=== PATIENT | male | born 1945 | race Caucasian/White ===

== ENCOUNTER 2016-05-14 09:06 | Day surgery (SDC) ==
[2016-05-14] MEDS ORDERED: VERSED ONE (12:10)
[2016-05-14] MEDS ORDERED: DIPRIVAN 20 ML VIAL IVP ONE (12:10)
[2016-05-14 13:08] VITALS: BP 123/71; TEMP 97.6
--- NOTE | 2016-05-15 13:22 | OP ---
INDICATIONS FOR PROCEDURE: 70-year-old gentleman presents for colonoscopy exam. He has a remote history of adenocarcinoma of the colon. MEDICATIONS: SEE ANESTHESIA NOTES. PROCEDURE: COLONOSCOPY. REPORT: The risks, benefits, alternatives and limitations were discussed in detail with the patient. Informed consent was obtained. After adequate sedation was achieved, a digital rectal exam revealed good tone, no masses. The colonoscope was introduced into the rectum and advanced under direct visual guidance to the ileocolonic anastomosis. This appeared unremarkable. The ileum appeared unremarkable. I then slowly withdrew the scope in a circumferential manner examining the mucosa quite carefully. The anastomosis was a side to side. The colonic mucosa was unremarkable its entire length other than a few small mouth diverticula scattered throughout the sigmoid colon. On retroflex view of the anal canal there is a non engorged internal hemorrhoidal vein. The prep was good. The withdrawal time in this shortened colon was 6 minutes and 21 seconds. The patient tolerated the procedure well with stable vital signs and pulse oximetry throughout. IMPRESSION: 1. DIVERTICULOSIS 2. NONENGORGED INTERNAL HEMORRHOID RECOMMENDATIONS: 1. High fiber diet. 2. Office visit as needed. 3. Colon surveillance examination again in 5 years, sooner if any signs or symptoms to indicate otherwise. CC: DR. BARI BROWN
== END 2016-05-14 13:32 | disposition home or self-care (01) ==
LOC: SURG 09:06
PROVIDERS: ATTEND Internal Medicine Gastroenterology
DX: Z08 Encounter for follow-up examination after completed treatment for malignant neoplasm (principal); Z85.038 Personal history of other malignant neoplasm of large intestine; K57.30 Diverticulosis of large intestine without perforation or abscess without bleeding; K64.8 Other hemorrhoids
CPT/HCPCS: 00810; G0105

== ENCOUNTER 2016-10-16 08:15 | Outpatient (RCR) ==
--- NOTE | 2016-10-10 16:08 | RS.OTEVAL ---
Subjective Date of Note: 10/10/16 Visit #: 1 Date of Evaluation: 10/10/16 Payer Source: MEDICARE Date of Onset/Injury/Change in Status: 09/12/16 Surgery Performed?: No Treatment Diagnosis: Contusion of Left shoulder Treatment Side (optional): Left *Precautions: Colon Cancer 1992 Prior Level of Function.....Patient was independent with: ADL's, Self Care, Work /Vocation, Caregiving, Ambulation/Mobility, Community Integration/Access History of Condition/Mechanism of Injury: Pt reported about a month ago he was trimming the bottome of a tree to make it level and when he cut the limb that was about 6 inches in diameter, it hit the ground and came back at him and hit his left deltoid. Pt reports he has had X-rays, MRI's and there is no fracture or tear of ligaments. Level of Function: Pt had difficulty with ADLS at the time of the initial injury. He now has pain in LUE with certain positions. He is driving. He can put his shirt on himself now. He has difficulty with buttons, cannot carry a suitcase with affected limb, cannot vacuum, sweep or rake with affected arm, difficulty preparing food, and difficulty opening a jar. Functional Limitations: Reaching, Pushing, Pulling, Lifting, Carrying Current Complaints/Gains: Pain and tenderness in deltoid muscle, in supraspinatus, and trapezius of LUE. Medical History Medical History Comments:: Colon CA 1992, Carpal tunnel release on BUE, Rotator cuff surgery. Diagnostic Testing/Imaging:: MRI, X-Ray Hx Home Medications: Le aspirin, Lorazepam, Citalopram HBR, Fenofibrate, Simvastatin Patient's Goals: To be pain free and be able to mow the yard and complete his ADLS. Pain Assessment - Pain Description Pain Description: Tightness, Radiating, Throbbing, Aching Pain Location: Left deltoid muscle, trapezius muscle and suprapinatus muscle. Pain Description: some numbness or tingling runs down LUE to his hand (small, ring,long digit) Current Pain Intensity: 3 Worst Pain Intensity: 7 Functional Outcome Measures UE Functional Index: 25 - G Codes & Severity Modifier G Codes: Current is CJ at 25%. Goal is CH Source of G Code score: Carrying moving and handling. Observation - Observation Inspection: Full AROM with edema in the left deltoid, supraspinatus. Handedness: Right Shoulder ROM: Bilaterally WFL's Shoulder Muscle Strength: Right WFL's - Left Shoulder Strength Left Shoulder Flexion: 4- Good- Left Shoulder Extension: 4- Good- Left Shoulder Abduction: 4- Good- Left Shoulder Adduction: 4- Good- Left Shoulder External Rotation: 4- Good- Left Shoulder Internal Rotation: 4- Good- - Right Shoulder Strength Right Shoulder Flexion: 5 Normal Right Shoulder Extension: 5 Normal Right Shoulder Abduction: 5 Normal Right Shoulder Adduction: 5 Normal Right Shoulder External Rotation: 5 Normal Right Shoulder Internal Rotation: 5 Normal - Special Tests Shoulder Empty Can (Supraspinatus) Test: Negative Left Shoulder Drop Arm Test: Negative Left Elbow ROM: Bilaterally WFL's Elbow Muscle Strength: Bilaterally WFL's - Left Elbow Strength Left Elbow Extension: 4+ Good + Left Elbow Flexion: 4+ Good + Left Forearm Pronation: 4+ Good + Left Forearm Supination: 4+ Good + - Right Elbow Strength Right Elbow Extension: 5 Normal Right Elbow Flexion: 5 Normal Right Forearm Pronation: 5 Normal Right Forearm Supination: 5 Normal Wrist ROM: Bilaterally WFL's Wrist Muscle Strength: Bilaterally WFL's - Consumer Services Consultant Strength Left Consumer Services Consultant Strength: 50 Right Consumer Services Consultant Strength: 52 - Special Tests Tinel Test: Negative Left Finklestein Test: Negative Left Phalen's Test: Negative Left Consumer Services Consultant Strength Left Hand Consumer Services Consultant Strength: 50 Right Hand Consumer Services Consultant Strength: 52 Dynamometer Testing Position: 2nd Position Palpation Palpation Findings: Tenderness, Trigger Point Sensation Right Lower Extremity: Intact/Normal Left Upper Extremity: Intact/Normal Left Lower Extremity: Intact/Normal Sensation Description: Within Normal Limits Modalities - Hot Pack/Cryotherapy Treatment: Cryotherapy Interventions - Exercise/Activities Exercise/Activities/Manual Therapy: Manual therapy to supraspinatus, trapezius, and deltoid muscle - Charges Total Direct Minutes: 70 Total Treatment Time: 40 Procedures billed for this date of service:: Yari oreilly, Manual x 2 , CP Assessment Assessment: Tenderness as a deep bruise to the Left deltoid. Pt has pain and numbness or tingling in LUE to the hand. Patient Education: Education of diagnosis, Home Exercise Program, Education of Plan of Care Rehab Potential: Good Short Term Goals Goal #1: Pt pain in LUE shoulder decreased to 1-2/10. Goal to be met by: 10/24/16 Goal #2: Pt to increase manufacturing support engineer strength to 52#. Goal to be met by: 10/24/16 Goal #3: Pt to increase strength of LUE to 4+/5 Goal to be met by: 10/24/16 Goal #4: Pt to increase coordination of LUE to be intact. Goal to be met by: 10/24/16 Pantographer Goals Goal #1: Pt pain in LUE shoulder decreased to 0/10. Goal to be met by: 11/14/16 Goal #2: Pt to increase manufacturing support engineer strength to 55#. Goal to be met by: 11/14/16 Goal #3: Pt to increase strength of LUE to 4+/5. Goal to be met by: 11/14/16 Goal #4: Pt to increase coordination of LUE to be intact. Goal to be met by: 11/14/16 Plan - Treatment to be provided Procedures: Therapeutic Exercises, Therapeutic Activity, Manual Therapy, Patient Education Modalities: Electrical Stimulation, Ultrasound/Phonophoresis, Class IV Laser - Treatment Plan Frequency: 3 X week Duration: 4 weeks ORDER # VISITS AND/OR THROUGH DATE: 2016 - Treatment Code (1) Contusion of left shoulder, initial encounter Comments: S40.012A Left shoulder contusion (2) Muscle weakness of left upper extremity Comments: M62.81 muscle weakness
--- NOTE | 2016-10-11 09:21 | RS.OTDNOTE ---
Subjective Date of Note: 10/11/16 Visit #: 2 Date of Evaluation: 10/10/16 Payer Source: MEDICARE Date of Onset/Injury/Change in Status: 09/12/16 Surgery Performed?: No Treatment Diagnosis: Contusion of Left shoulder Treatment Side (optional): Left *Precautions: Colon Cancer 1992 Prior Level of Function.....Patient was independent with: ADL's, Self Care, Work /Vocation, Caregiving, Ambulation/Mobility, Community Integration/Access History of Condition/Mechanism of Injury: Pt reported about a month ago he was trimming the bottome of a tree to make it level and when he cut the limb that was about 6 inches in diameter, it hit the ground and came back at him and hit his left deltoid. Pt reports he has had X-rays, MRI's and there is no fracture or tear of ligaments. Level of Function: Pt had difficulty with ADLS at the time of the initial injury. He now has pain in LUE with certain positions. He is driving. He can put his shirt on himself now. He has difficulty with buttons, cannot carry a suitcase with affected limb, cannot vacuum, sweep or rake with affected arm, difficulty preparing food, and difficulty opening a jar. Functional Limitations: Reaching, Pushing, Pulling, Lifting, Carrying Current Complaints/Gains: Pt agreeable to e-stim tx. States he has previously utilized e-stim tx with his back pain. Pain Assessment - Pain Description Pain Description: Tightness, Radiating, Throbbing, Aching Pain Location: Left deltoid muscle, trapezius muscle and suprapinatus muscle. Pain Description: some numbness or tingling runs down LUE to his hand (small, ring,long digit) Current Pain Intensity: 2 Worst Pain Intensity: 4 Other comments regarding pain:: shoulder flexion/extension Modalities - Treatment Modality: Electrical Stim Unattended Parameters/Method Applied: Hi-volt x 20 mins to peak 135V Treatment Area: shoulder/deltoids Patient Position: Sitting - Hot Pack/Cryotherapy Treatment: Cryotherapy (CP x 20 mins) Interventions - Exercise/Activities Exercise/Activities/Manual Therapy: Manual therapy to supraspinatus, trapezius, and deltoid muscle. Light resist RTC series ex with yellow/red t-band and 1-2# hand weights. - Objective Findings Objective Findings:: Tenderness with palpation - Charges Total Direct Minutes: 35 Total Treatment Time: 60 Procedures billed for this date of service:: CP ESTIM EX MT Assessment Patient Education: Education of diagnosis, Body/Joint mechanics, Home Exercise Program, Home Safety, Activity Modification, Education of Plan of Care Patient demonstrates compliance with HEP?: Yes Short Term Goals Goal #1: Pt pain in LUE shoulder decreased to 1-2/10. Goal to be met by: 10/24/16 Progress towards goal: Progressing Goal #2: Pt to increase director product management strength to 52#. Goal to be met by: 10/24/16 Progress towards goal: Progressing Goal #3: Pt to increase strength of LUE to 4+/5 Goal to be met by: 10/24/16 Progress towards goal: Progressing Goal #4: Pt to increase coordination of LUE to be intact. Goal to be met by: 10/24/16 Progress towards goal: Progressing Senior Living Goals Goal #1: Pt pain in LUE shoulder decreased to 0/10. Goal to be met by: 11/14/16 Progress towards goal: Progressing Goal #2: Pt to increase director product management strength to 55#. Goal to be met by: 11/14/16 Progress towards goal: Progressing Goal #3: Pt to increase strength of LUE to 4+/5. Goal to be met by: 11/14/16 Progress towards goal: Progressing Goal #4: Pt to increase coordination of LUE to be intact. Goal to be met by: 11/14/16 Progress towards goal: Progressing Plan PLAN OF CARE EXPIRES ON:: 11/14/16 ORDER # VISITS AND/OR THROUGH DATE: 2016 PLAN: Continue Plan of Care Frequency: 3 X week Duration: 4 weeks
--- NOTE | 2016-10-14 16:05 | RS.OTDNOTE ---
Subjective Date of Note: 10/14/16 Visit #: 3 Date of Evaluation: 10/10/16 Payer Source: MEDICARE Date of Onset/Injury/Change in Status: 09/12/16 Surgery Performed?: No Treatment Diagnosis: Contusion of Left shoulder Treatment Side (optional): Left *Precautions: Colon Cancer 1992 Prior Level of Function.....Patient was independent with: ADL's, Self Care, Work /Vocation, Caregiving, Ambulation/Mobility, Community Integration/Access History of Condition/Mechanism of Injury: Pt reported about a month ago he was trimming the bottome of a tree to make it level and when he cut the limb that was about 6 inches in diameter, it hit the ground and came back at him and hit his left deltoid. Pt reports he has had X-rays, MRI's and there is no fracture or tear of ligaments. Level of Function: Pt had difficulty with ADLS at the time of the initial injury. He now has pain in LUE with certain positions. He is driving. He can put his shirt on himself now. He has difficulty with buttons, cannot carry a suitcase with affected limb, cannot vacuum, sweep or rake with affected arm, difficulty preparing food, and difficulty opening a jar. Functional Limitations: Reaching, Pushing, Pulling, Lifting, Carrying Current Complaints/Gains: pt reports less pain and good compliance with applying CP over the wknd. Pain Assessment - Pain Description Pain Description: Radiating, Dull, Aching Pain Location: Left deltoid muscle, trapezius muscle and suprapinatus muscle. Pain Description: some numbness or tingling runs down LUE to his hand (small, ring,long digit) Current Pain Intensity: 1 Worst Pain Intensity: 3-4 Modalities - Treatment Modality: Electrical Stim Unattended Parameters/Method Applied: 165V, hi-volt setting cross current x 4 small pads Patient Position: Sitting - Hot Pack/Cryotherapy Treatment: Cryotherapy (CP x20 mins) Interventions - Exercise/Activities Exercise/Activities/Manual Therapy: Manual therapy to supraspinatus, trapezius, and deltoid muscle. Light resist RTC series ex with yellow/red t-band and 2# hand weights, 15/2. Ball on the wall ex's also performed. - Objective Findings Objective Findings:: Tenderness with palpation - Charges Total Direct Minutes: 20 Total Treatment Time: 50 Procedures billed for this date of service:: EX ESTIM CP Assessment Patient Education: Education of diagnosis, Body/Joint mechanics, Home Exercise Program, Home Safety, Activity Modification, Education of Plan of Care Patient demonstrates compliance with HEP?: Yes Short Term Goals Goal #1: Pt pain in LUE shoulder decreased to 1-2/10. Goal to be met by: 10/24/16 Progress towards goal: Partially Met Goal #2: Pt to increase story editor strength to 52#. Goal to be met by: 10/24/16 Progress towards goal: Progressing Goal #3: Pt to increase strength of LUE to 4+/5 Goal to be met by: 10/24/16 Progress towards goal: Partially Met Goal #4: Pt to increase coordination of LUE to be intact. Goal to be met by: 10/24/16 Progress towards goal: Progressing [facility] Goals Goal #1: Pt pain in LUE shoulder decreased to 0/10. Goal to be met by: 11/14/16 Progress towards goal: Progressing Goal #2: Pt to increase story editor strength to 55#. Goal to be met by: 11/14/16 Progress towards goal: Progressing Goal #3: Pt to increase strength of LUE to 4+/5. Goal to be met by: 11/14/16 Progress towards goal: Progressing Goal #4: Pt to increase coordination of LUE to be intact. Goal to be met by: 11/14/16 Progress towards goal: Progressing Plan PLAN OF CARE EXPIRES ON:: 11/08/16 ORDER # VISITS AND/OR THROUGH DATE: 2016 PLAN: Progress Exercises Frequency: 3 X week Duration: 4 weeks
--- NOTE | 2016-10-16 09:11 | RS.OTDNOTE ---
Subjective Date of Note: 10/16/16 Visit #: 4 Date of Evaluation: 10/10/16 Payer Source: MEDICARE Date of Onset/Injury/Change in Status: 09/12/16 Surgery Performed?: No Treatment Diagnosis: Contusion of Left shoulder Treatment Side (optional): Left *Precautions: Colon Cancer 1992 Prior Level of Function.....Patient was independent with: ADL's, Self Care, Work /Vocation, Caregiving, Ambulation/Mobility, Community Integration/Access History of Condition/Mechanism of Injury: Pt reported about a month ago he was trimming the bottome of a tree to make it level and when he cut the limb that was about 6 inches in diameter, it hit the ground and came back at him and hit his left deltoid. Pt reports he has had X-rays, MRI's and there is no fracture or tear of ligaments. Level of Function: Pt had difficulty with ADLS at the time of the initial injury. He now has pain in LUE with certain positions. He is driving. He can put his shirt on himself now. He has difficulty with buttons, cannot carry a suitcase with affected limb, cannot vacuum, sweep or rake with affected arm, difficulty preparing food, and difficulty opening a jar. Functional Limitations: Reaching, Pushing, Pulling, Lifting, Carrying Current Complaints/Gains: Pt continues stating he is pleased with progress. Pain decreased, no pain at times. AROM increasing with shoulder flexion, abd, and extension. Pain Assessment - Pain Description Pain Description: Radiating, Dull, Aching Pain Location: Left deltoid muscle, trapezius muscle and suprapinatus muscle. Pain Description: some numbness or tingling runs down LUE to his hand (small, ring,long digit) Current Pain Intensity: 0 Worst Pain Intensity: 3 Modalities - Treatment Modality: Ultrasound Parameters/Method Applied: 1.5w/cm2 x 10 mins to trap and deltoid of UE Patient Position: Sitting - Hot Pack/Cryotherapy Treatment: Cryotherapy (CP x 10 mins) Interventions - Exercise/Activities Exercise/Activities/Manual Therapy: Manual therapy to supraspinatus, trapezius, and deltoid muscle. Light resist RTC series ex with yellow/red t-band and 2# hand weights, 15/1. Ball on the wall ex's also performed. - Objective Findings Objective Findings:: Tenderness with palpation, but decreased this date. - Charges Total Direct Minutes: 52 Total Treatment Time: 62 Procedures billed for this date of service:: CP US EX MT Assessment Patient Education: Education of diagnosis, Body/Joint mechanics, Home Exercise Program, Home Safety, Activity Modification, Education of Plan of Care Patient demonstrates compliance with HEP?: Yes Short Term Goals Goal #1: Pt pain in LUE shoulder decreased to 1-2/10. Goal to be met by: 10/24/16 Progress towards goal: Partially Met Comments: 3/10 Goal #2: Pt to increase dispatch associate strength to 52#. Goal to be met by: 10/24/16 Progress towards goal: Progressing Goal #3: Pt to increase strength of LUE to 4+/5 Goal to be met by: 10/24/16 Progress towards goal: Met Goal #4: Pt to increase coordination of LUE to be intact. Goal to be met by: 10/24/16 Progress towards goal: Partially Met College Sports Coach Goals Goal #1: Pt pain in LUE shoulder decreased to 0/10. Goal to be met by: 11/14/16 Progress towards goal: Progressing Goal #2: Pt to increase dispatch associate strength to 55#. Goal to be met by: 11/14/16 Progress towards goal: Progressing Goal #3: Pt to increase strength of LUE to 4+/5. Goal to be met by: 11/14/16 Progress towards goal: Progressing Goal #4: Pt to increase coordination of LUE to be intact. Goal to be met by: 11/14/16 Progress towards goal: Progressing Plan PLAN OF CARE EXPIRES ON:: 11/15/16 ORDER # VISITS AND/OR THROUGH DATE: 2016 PLAN: Continue Plan of Care Frequency: 3 X week Duration: 3 weeks
== END 2016-10-17 ==
PROVIDERS: ATTEND Orthopaedic Surgery
DX: S40.012A Contusion of left shoulder, initial encounter (principal)

== ENCOUNTER 2016-10-23 08:15 | Outpatient (RCR) ==
--- NOTE | 2016-10-18 09:01 | RS.OTDNOTE ---
Subjective Date of Note: 10/18/16 Visit #: 5 Date of Evaluation: 10/10/16 Payer Source: MEDICARE Date of Onset/Injury/Change in Status: 09/12/16 Surgery Performed?: No Treatment Diagnosis: Contusion of Left shoulder Treatment Side (optional): Left *Precautions: Colon Cancer 1992 Prior Level of Function.....Patient was independent with: ADL's, Self Care, Work /Vocation, Caregiving, Ambulation/Mobility, Community Integration/Access History of Condition/Mechanism of Injury: Pt reported about a month ago he was trimming the bottome of a tree to make it level and when he cut the limb that was about 6 inches in diameter, it hit the ground and came back at him and hit his left deltoid. Pt reports he has had X-rays, MRI's and there is no fracture or tear of ligaments. Level of Function: Pt had difficulty with ADLS at the time of the initial injury. He now has pain in LUE with certain positions. He is driving. He can put his shirt on himself now. He has difficulty with buttons, cannot carry a suitcase with affected limb, cannot vacuum, sweep or rake with affected arm, difficulty preparing food, and difficulty opening a jar. Functional Limitations: Reaching, Pushing, Pulling, Lifting, Carrying Current Complaints/Gains: Pt reports good pain relief from attending therapy. Pain Assessment - Pain Description Pain Description: Dull, Aching (Mostly along deltoid this date) Pain Location: Left deltoid muscle, trapezius muscle and suprapinatus muscle. Pain Description: some numbness or tingling runs down LUE to his hand (small, ring,long digit) Current Pain Intensity: 1 Worst Pain Intensity: 3 Modalities - Treatment Modality: Ultrasound Parameters/Method Applied: .04w/cm2 x 7 mins each to deltoid and trap Patient Position: Sitting - Hot Pack/Cryotherapy Treatment: Cryotherapy (CP X10+ mins) Interventions - Exercise/Activities Exercise/Activities/Manual Therapy: Manual therapy to supraspinatus, trapezius, and deltoid muscle. Light resist RTC series ex with red t-band and 3# hand weights, 15/1. Ball on the wall ex's also performed. HEP instructions given with red t-band for home use shoulder scapular ex - Objective Findings Objective Findings:: Tenderness with palpation, but decreased this date. - Charges Total Direct Minutes: 45 Total Treatment Time: 55 Procedures billed for this date of service:: CP US EX MT Assessment Patient Education: Education of diagnosis, Body/Joint mechanics, Home Exercise Program, Home Safety, Activity Modification, Education of Plan of Care Patient demonstrates compliance with HEP?: Yes Short Term Goals Goal #1: Pt pain in LUE shoulder decreased to 1-2/10. Goal to be met by: 10/24/16 Progress towards goal: Partially Met Comments: 3/10 Goal #2: Pt to increase production drilling machine operator strength to 52#. Goal to be met by: 10/24/16 Progress towards goal: Progressing Goal #3: Pt to increase strength of LUE to 4+/5 Goal to be met by: 10/24/16 Progress towards goal: Met Goal #4: Pt to increase coordination of LUE to be intact. Goal to be met by: 10/24/16 Progress towards goal: Partially Met Group Home Goals Goal #1: Pt pain in LUE shoulder decreased to 0/10. Goal to be met by: 11/14/16 Progress towards goal: Progressing Goal #2: Pt to increase production drilling machine operator strength to 55#. Goal to be met by: 11/14/16 Progress towards goal: Progressing Goal #3: Pt to increase strength of LUE to 4+/5. Goal to be met by: 11/14/16 Progress towards goal: Progressing Goal #4: Pt to increase coordination of LUE to be intact. Goal to be met by: 11/14/16 Progress towards goal: Progressing Plan PLAN OF CARE EXPIRES ON:: 11/15/16 ORDER # VISITS AND/OR THROUGH DATE: 2016 PLAN: Progress Exercises Frequency: 3 X week Duration: 2 weeks
--- NOTE | 2016-10-23 08:40 | RS.OTDNOTE ---
Subjective Date of Note: 10/23/16 Visit #: 6 Date of Evaluation: 10/10/16 Payer Source: MEDICARE Date of Onset/Injury/Change in Status: 09/12/16 Surgery Performed?: No Treatment Diagnosis: Contusion of Left shoulder Treatment Side (optional): Left *Precautions: Colon Cancer 1992 Prior Level of Function.....Patient was independent with: ADL's, Self Care, Work /Vocation, Caregiving, Ambulation/Mobility, Community Integration/Access History of Condition/Mechanism of Injury: Pt reported about a month ago he was trimming the bottome of a tree to make it level and when he cut the limb that was about 6 inches in diameter, it hit the ground and came back at him and hit his left deltoid. Pt reports he has had X-rays, MRI's and there is no fracture or tear of ligaments. Level of Function: Pt had difficulty with ADLS at the time of the initial injury. He now has pain in LUE with certain positions. He is driving. He can put his shirt on himself now. He has difficulty with buttons, cannot carry a suitcase with affected limb, cannot vacuum, sweep or rake with affected arm, difficulty preparing food, and difficulty opening a jar. Current Complaints/Gains: Pt reports he was able to mow with his riding and his push mower on Friday with no pain. States he has made an ice pack and has been utilizing 3x's per day for up to a hr. Pain Assessment - Pain Description Pain Description: Dull, Aching (Mostly along deltoid this date) Pain Location: Left deltoid muscle, trapezius muscle and suprapinatus muscle. Pain Description: some numbness or tingling runs down LUE to his hand (small, ring,long digit) Current Pain Intensity: 0 Worst Pain Intensity: 0 Other comments regarding pain:: States numbess is rare and believes it is positonal. States it will go away with AROM of UE Modalities - Hot Pack/Cryotherapy Treatment: Cryotherapy (CP x 15 mins) Interventions - Exercise/Activities Exercise/Activities/Manual Therapy: Manual therapy to supraspinatus, trapezius, and deltoid muscle. Light resist RTC series ex with green t-band and 4# hand weights, 15/2. Ball on the wall ex's also performed. HEP instructions given with green t-band and blue for upgrading TE for home use shoulder scapular ex/ strengthening. - Objective Findings Objective Findings:: AROM WNL, MMT 5/5 all shoulder and bicep - Charges Total Direct Minutes: 20 Total Treatment Time: 35 Procedures billed for this date of service:: CP EX Assessment Patient Education: Education of diagnosis, Body/Joint mechanics, Home Exercise Program, Home Safety, Activity Modification, Education of Plan of Care Patient demonstrates compliance with HEP?: Yes Short Term Goals Goal #1: Pt pain in LUE shoulder decreased to 1-2/10. Goal to be met by: 10/24/16 Progress towards goal: Met Goal #2: Pt to increase atomizer assembler strength to 52#. Goal to be met by: 10/24/16 Progress towards goal: Met Goal #3: Pt to increase strength of LUE to 4+/5 Goal to be met by: 10/24/16 Progress towards goal: Met Goal #4: Pt to increase coordination of LUE to be intact. Goal to be met by: 10/24/16 Progress towards goal: Met Prison Goals Goal #1: Pt pain in LUE shoulder decreased to 0/10. Goal to be met by: 11/14/16 Progress towards goal: Met Goal #2: Pt to increase atomizer assembler strength to 55#. Goal to be met by: 11/14/16 Progress towards goal: Met Goal #3: Pt to increase strength of LUE to 4+/5. Goal to be met by: 11/14/16 Progress towards goal: Met Goal #4: Pt to increase coordination of LUE to be intact. Goal to be met by: 11/14/16 Progress towards goal: Met Plan PLAN OF CARE EXPIRES ON:: 11/15/16 ORDER # VISITS AND/OR THROUGH DATE: 2016 PLAN: Plan for Discharge Frequency: DC Duration: DC
--- NOTE | 2016-10-24 18:09 | RS.OTQKDC ---
OT Discharge Date of Discharge: 10/24/16 Number of Visits: 6 Reason for Discharge: Pt reports his pain in the left shoulder is gone. Pt reports he is able to mow his yard now with a riding mower and a push mower without pain. Pt reports he rarely had numbness in his digits. Pt wants to be discharged today with LUE AROM WNL and MMT of 5/5.
== END 2016-11-16 ==
PROVIDERS: ATTEND Orthopaedic Surgery
DX: S40.012A Contusion of left shoulder, initial encounter (principal)

== ENCOUNTER 2017-10-10 08:15 | Outpatient (RCR) ==
--- NOTE | 2017-09-25 15:29 | RS.OPPTEV2 ---
Date of Note: 09/25/17 Visit #: 1 Date of Evaluation: 09/25/17 Payer Source: MEDICARE Surgery Performed?: No Treatment Diagnosis: Cervical radiculopathy, right UE pain History of Condition/Mechanism of Injury:: Mr. Heath reports right UE pain and quivering of his arm for the last two months. Reports no injury to his neck or right UE. No history of neck problems. Prior Level of Function.....Patient was independent with: ADL's, Self Care, Work /Vocation (retired), Caregiving, Ambulation/Mobility, Community Integration/ Access Functional Limitations: Self Care, ADL's, Reaching, Pushing, Pulling, Lifting, Carrying Current Subjective/complaints:: Mr. Heath reports right UE pain at the wrist, elbow, and upper arm. States when he tightens his muscles in the right UE, the arm quivers. He reports no symptoms in the left UE. Also reports tenderness in the right UE, just below the elbow, when he grabs his arm tight in that region. He has been wearing a sling on the right UE for a couple of months since being told by the doctors office to wear it all the time. He is right arm dominant. Reports no tingling or numbness in the right UE. States he has no pain at his neck and no pain or difficulty with neck movement. States he rarely has a headache. Treatment Side (optional): Right Medical History Medical History Comments:: Colon CA 1992, Carpal tunnel release on BUE over 20 years ago, Rotator cuff surgery. Smoking Status: Former smoker Hx Home Medications: Le aspirin, Lorazepam, Citalopram HBR, Fenofibrate, Simvastatin Patient's Goals: His goal is to get relief of right arm pain. Pain Assessment - Pain Description Pain Location: right wrist, elbow, and upper arm Current Pain Intensity: 6/10 Worst Pain Intensity: 10/10 Functional Outcome Measure Neck Disability Index: 34 - G Codes & Severity Modifier G Codes & Modifier: Carry current CJ. Carry goal CI Source of G Code score: Neck Disability Index Observation - Observation Inspection: Patient presents to therapy with a sling on the right UE. Right UE presents with no swelling or discoloration. Posture: Forward Head, Rounded Shoulders Handedness: Right Gait - Gait Pattern General Gait Pattern Observation: No Deviations/Normal - ROM Comments: Cervical extension is WNL's, flexion is WFL's, bilateral rotation is WFL's. Reports no reproduction of symptoms with cervical ROM. Right UE AROM is WFL's. Pain only reported with end range wrist and elbow supination. He demonstrates no quivering, shaking, or tremor of the right UE during active movement or while at rest. - Strength Comments: Bilateral UE strength is 4+/5 throughout. Salesperson Men'S Furnishings Strength Left Hand Salesperson Men'S Furnishings Strength: 79-80 lbs. Right Hand Salesperson Men'[employer] Furnishings Strength: 60 lbs. Dynamometer Testing Position: 2nd Position Palpation Comments:: Tenderness reported with palpation along the medial border of the right scapula. Denies tenderness throughout the neck, right upper traps, or GH joint. Reports tenderness just distal to the right elbow joint, over the muscles and other soft tissue. Sensation - Sensation Right Upper Extremity: Intact/Normal Left Upper Extremity: Intact/Normal - Heat/Cryotherapy Treatment: Hot Pack (X 10 mins to cervical spine in sitting, prior to traction) - Traction Treatment Method: Mechanical, Intermittent, Cervical Patient Position: Supine Amount of Force Applied: 14-15 lbs. Hold Time: 30 secs Rest Time: 5 secs Duration of treatment: 10 mins Interventions - Exercise/Activities/Manual Therapy Exercises/Activities: No exercises given today since mechanical traction was started. Manual Therapy: NA - Charges Timed Code Treatment Minutes: 20 mins Total Treatment Time: 48 mins Procedures billed for this date of service:: EVAL LOW, HP, mechanical traction EVALUATION COMPLEXITY LEVEL EVALUATION COMPLEXITY LEVEL: HISTORY: Low (No history of neck problems), EXAM OF BODY SYSTEMS: Low, CLINICAL PRESENTATION: Low, CLINICAL DECISION MAKING: Low Assessment Assessment: Mr. Heath presents to therapy with a diagnosis of DJD Cervcial spine, spondylolysis cervical spine. He reports primarily right UE pain at the wrist, elbow and upper arm. Dominant hand strength is weaker than the nondominant hand by 20 lbs. All other strength of the Right UE is WFL's. He displays functional cervical spine AROM and no muscle guarding along the cervical paraspinals or upper traps. He exhibits an active trigger point along the medial border of the right scapula and tenderness in the muscles and other soft tissue over the ulnar and radial head. Patient may benefit from cervical traction to reduce symptoms that may be radiating from the cervical spine, along with manual therapy and postural education and strengthening exercises. Patient Education: Education of diagnosis, Education of Plan of Care Rehab Potential: Good Short Term Goals Goal #1: Patient independent and compliant with HEP. Goal to be met by: 10/09/17 Goal #2: Right UE pain decreased to 3/10. Goal to be met by: 10/09/17 Goal #3: Right UE symptom frequency decreased to occasional. Goal to be met by: 10/09/17 Senior Care Goals Goal #1: Pt knows HEP and to cont. ex's to maintain functional level at D/C. Goal to be met by: 11/04/17 Goal #2: Score on Neck Disabilty index improved 19% or less impairment. Goal to be met by: 11/04/17 Goal #3: Pt to report no right UE pain at rest or with activity. Goal to be met by: 11/04/17 Goal #4: Pt to demonstrate good postural awareness. Goal to be met by: 11/04/17 Plan - Treatment to be Provided Procedures: Therapeutic Exercises, Therapeutic Activity, Manual Therapy, Patient Education Modalities: Ultrasound/Phonophoresis, Cryotherapy, Hot Packs, Mechanical Traction (cervical) - Treatment Plan Frequency: 2-3 X week Duration: 4 weeks ORDER # VISITS AND/OR THROUGH DATE: 11/04/17 - Treatment Code (1) Pain of right upper extremity Code(s): M79.601 - PAIN IN RIGHT ARM Comments: M79.601 (2) Spondylolysis of cervical region Code(s): M43.02 - SPONDYLOLYSIS, CERVICAL REGION Comments: M43.02 (3) Cervical spondylosis with radiculopathy Code(s): M47.22 - OTHER SPONDYLOSIS WITH RADICULOPATHY, CERVICAL REGION Comments: M47.22
--- NOTE | 2017-09-26 09:36 | RS.OPPTDN ---
Subjective Date of Note: 09/26/17 Visit #: 2 Date of Evaluation: 09/25/17 Payer Source: MEDICARE Treatment Diagnosis: Cervical radiculopathy, right UE pain Current Subjective/complaints:: Patient says he is not able to tell any change in symptoms from traction yet. He says he did take his sling off per PT and did not have any difficulty with the exception of eating breakfast this morning. He says while bringing his spoon to his mouth, the arm shook and he felt he could not twist (pronate) enough. *Precautions: Colon Cancer 1992 - Heat/Cryotherapy Treatment: Hot Pack (cervical and over the R scapula x 20 mins sitting) - Traction Treatment Method: Mechanical, Intermittent, Cervical Patient Position: Supine Amount of Force Applied: 15-16 Hold Time: 25 Rest Time: 5 Duration of treatment: 15 Interventions - Exercise/Activities/Manual Therapy Exercises/Activities: No exercises given today since mechanical traction was started. Manual Therapy: NA - Charges Timed Code Treatment Minutes: 5 Total Treatment Time: 40 Procedures billed for this date of service:: hp, mechanical traction Assessment: Patient appears to enrico traction poundage well. He demo R forearm shaking during contraction and flexing the R shoulder and with feeding today. He presents without sling today. Patient educated on traction and benefits of treating the cspine for R radiculopathy. Patient Education: Education of diagnosis, Home Exercise Program, Education of Plan of Care Short Term Goals Goal #1: Patient independent and compliant with HEP. Goal to be met by: 10/09/17 Progress towards Goal:: Progressing Goal #2: Right UE pain decreased to 3/10. Goal to be met by: 10/09/17 Goal #3: Right UE symptom frequency decreased to occasional. Goal to be met by: 10/09/17 Electronics Technician Apprentice Goals Goal #1: Pt knows HEP and to cont. ex's to maintain functional level at D/C. Goal to be met by: 11/04/17 Goal #2: Score on Neck Disabilty index improved 19% or less impairment. Goal to be met by: 11/04/17 Goal #3: Pt to report no right UE pain at rest or with activity. Goal to be met by: 11/04/17 Goal #4: Pt to demonstrate good postural awareness. Goal to be met by: 11/04/17 Plan PLAN OF CARE EXPIRES ON:: 11/04/17 ORDER # VISITS AND/OR THROUGH DATE: 11/04/17 PLAN: Patient to continue TIW for progression of traction
--- NOTE | 2017-09-29 09:41 | RS.OPPTDN ---
Subjective Date of Note: 09/29/17 Visit #: 3 Date of Evaluation: 09/25/17 Payer Source: MEDICARE Treatment Diagnosis: Cervical radiculopathy, right UE pain Current Subjective/complaints:: Patient says his pain is unchanged at the neck. He says he is not able to see any improvement from traction yet. Says he is working on HEP. *Precautions: Colon Cancer 1992 - Heat/Cryotherapy Treatment: Hot Pack (cervical in sitting for 20 mins) - Traction Treatment Method: Mechanical, Intermittent, Cervical Patient Position: Supine Amount of Force Applied: 18 Hold Time: 25 Rest Time: 5 Duration of treatment: 20 Traction Treatment Comment: stopped traction after 17 mins as patient feels that traction was not pulling properly. Watched as treatment appeared to pull appropriately, but did discontinue to let patient sit. Interventions - Exercise/Activities/Manual Therapy Exercises/Activities: Reviewed HEP Manual Therapy: NA - Charges Timed Code Treatment Minutes: 5 Total Treatment Time: 45 Procedures billed for this date of service:: hp, mechanical traction Assessment: Patient appears to enrico traction for 3/4 of the time feeling that the traction did not pull enough. We did modify treatment to pull up to 18-19# and continues to pull appropriately. Readjusted patient's position also. No elevated pain following session. Patient should continue traction to decrease his symptoms, but will discontinue if he feels it is not effective. Patient Education: Education of diagnosis, Home Exercise Program, Education of Plan of Care Patient demonstrates compliance with HEP?: Yes Short Term Goals Goal #1: Patient independent and compliant with HEP. Goal to be met by: 10/09/17 Progress towards Goal:: Progressing Goal #2: Right UE pain decreased to 3/10. Goal to be met by: 10/09/17 Progress towards Goal:: Progressing Goal #3: Right UE symptom frequency decreased to occasional. Goal to be met by: 10/09/17 Analyst Market Intelligence Goals Goal #1: Pt knows HEP and to cont. ex's to maintain functional level at D/C. Goal to be met by: 11/04/17 Goal #2: Score on Neck Disabilty index improved 19% or less impairment. Goal to be met by: 11/04/17 Goal #3: Pt to report no right UE pain at rest or with activity. Goal to be met by: 11/04/17 Goal #4: Pt to demonstrate good postural awareness. Goal to be met by: 11/04/17 Plan PLAN OF CARE EXPIRES ON:: 11/04/17 ORDER # VISITS AND/OR THROUGH DATE: 11/04/17 PLAN: Patient to continue 2-3 times per week for treatment of neck and R UE pain.
--- NOTE | 2017-10-01 13:12 | RS.OPPTDN ---
Subjective Date of Note: 10/01/17 Visit #: 4 Date of Evaluation: 09/25/17 Payer Source: MEDICARE Treatment Diagnosis: Cervical radiculopathy, right UE pain Current Subjective/complaints:: Patient intially says treatment does not seem to be helping, but during session today he says, "You've helped me a lot." *Precautions: Colon Cancer 1992 - Treatment Modality: Ultrasound Parameters/Method Applied: continuous @ 1.5 w/cm2 x 10 mins to the R UT and R shoulder Patient Position: Sitting - Heat/Cryotherapy Treatment: Hot Pack (over the R UT and shoulder/upper arm x 20 mins in sitting) - Traction Treatment Method: Mechanical, Intermittent, Cervical Patient Position: Supine Amount of Force Applied: 19-20# Hold Time: 25 Rest Time: 5 Duration of treatment: 20 Interventions - Exercise/Activities/Manual Therapy Exercises/Activities: Reviewed HEP Manual Therapy: NA - Charges Timed Code Treatment Minutes: 10 Total Treatment Time: 50 Procedures billed for this date of service:: hp, mechanical traction, u/s Assessment: Patient admits improved pain and comfortable traction treatment today. He has mild increase in muscle guarding to the R UT, which appears to be relieved by treatment. Continue progressing traction and apply u/s and progress with therex to the R UE. Patient Education: Education of diagnosis, Education of Plan of Care Patient demonstrates compliance with HEP?: Yes Short Term Goals Goal #1: Patient independent and compliant with HEP. Goal to be met by: 10/09/17 Progress towards Goal:: Progressing Goal #2: Right UE pain decreased to 3/10. Goal to be met by: 10/09/17 Progress towards Goal:: Progressing Goal #3: Right UE symptom frequency decreased to occasional. Goal to be met by: 10/09/17 Lockstitch Tunnel Elastic Operator Goals Goal #1: Pt knows HEP and to cont. ex's to maintain functional level at D/C. Goal to be met by: 11/04/17 Goal #2: Score on Neck Disabilty index improved 19% or less impairment. Goal to be met by: 11/04/17 Goal #3: Pt to report no right UE pain at rest or with activity. Goal to be met by: 11/04/17 Goal #4: Pt to demonstrate good postural awareness. Goal to be met by: 11/04/17 Plan PLAN OF CARE EXPIRES ON:: 11/04/17 ORDER # VISITS AND/OR THROUGH DATE: 11/04/17 PLAN: continue traction
--- NOTE | 2017-10-03 10:14 | RS.OPPTDN ---
Subjective Date of Note: 10/03/17 Visit #: 5 Date of Evaluation: 09/25/17 Payer Source: MEDICARE Treatment Diagnosis: Cervical radiculopathy, right UE pain Current Subjective/complaints:: Patient says he felt u/s helped his neck and shoulder tightness. Reports his elbow still bothers him and concerns him. He says he has put a device on his mower to be able to steer it using the L UE. He says he has various tbands at home to work on. *Precautions: Colon Cancer 1992 Pain Assessment - Pain Description Pain Location: R elbow - Treatment Modality: Ultrasound Parameters/Method Applied: continuous @ 1.5 w/cm2 10 mins to the R UT and shoulder Patient Position: Sitting - Heat/Cryotherapy Treatment: Hot Pack (R shoulder and R UT) Interventions - Exercise/Activities/Manual Therapy Exercises/Activities: Patient receives PROM to the R shoulder and elbow in sitting. PROM to the L for comparison. Patient demo full PROM L UE. Patient performs manual isometrics all directions x 5. 3# wand for bilateral shoulder flexion x 5, removed extra weight for 1# wand x 10 to ~170 degrees. 1# dumbell for elbow sup/pron x 10, red tband for biceps curls x 10, 2# dumbell for R UE lean x 10 sec's/3 reps, red tband for scap retraction, red tband for R shoulder extension, horizontal abd x 10, scap adduction stretch with hands clasped behind his back. Acquisition Consultant measured @ 50# for the R hand and 60-70# for the L. Total minutes of Exercise: 24 Manual Therapy: NA - Objective Findings Observations,measurements,etc.: Full PROM and AROM. 4+/5 general strength to the R UE. - Charges Timed Code Treatment Minutes: 32 Total Treatment Time: 52 Procedures billed for this date of service:: hp, u/s, ex Assessment: Patient demo full ROM actively and passively to the R UE. Acquisition Consultant strength is less in dominant hand than L and remains unchanged from eval. Patient's reports vary and are not consistent. He demo slight tremor with AROM to both UE's when pron/supinate and consistently with passive shoulder flexion/ abd, but more so to the R. I could not find any exercise performed today to reproduce his pain. Will work on therex 2-3 times next week, then hold further treatment. Patient Education: Education of diagnosis, Home Exercise Program, Education of Plan of Care Short Term Goals Goal #1: Patient independent and compliant with HEP. Goal to be met by: 10/09/17 Progress towards Goal:: Progressing Goal #2: Right UE pain decreased to 3/10. Goal to be met by: 10/09/17 Progress towards Goal:: Progressing Goal #3: Right UE symptom frequency decreased to occasional. Goal to be met by: 10/09/17 Progress towards Goal:: No Change Insurance Account Representative Goals Goal #1: Pt knows HEP and to cont. ex's to maintain functional level at D/C. Goal to be met by: 11/04/17 Progress towards goal: Progressing Goal #2: Score on Neck Disabilty index improved 19% or less impairment. Goal to be met by: 11/04/17 Goal #3: Pt to report no right UE pain at rest or with activity. Goal to be met by: 11/04/17 Goal #4: Pt to demonstrate good postural awareness. Goal to be met by: 11/04/17 Plan PLAN OF CARE EXPIRES ON:: 11/04/17 ORDER # VISITS AND/OR THROUGH DATE: 11/04/17 PLAN: Patient to attend 2-3 more times next week for therex and then d/c. Follow up with 10/13/17.
--- NOTE | 2017-10-06 10:31 | RS.OPPTDN ---
Subjective Date of Note: 10/06/17 Visit #: 6 Date of Evaluation: 09/25/17 Payer Source: MEDICARE Treatment Diagnosis: Cervical radiculopathy, right UE pain Current Subjective/complaints:: Patient says he had no pain to his shoulder or elbow all weekend until he worked on HEP. Says the bands caused elbow pain to elevate. He denies feeling any symptoms from scapula or neck. He says he is able to mow without pain. States he will return to the MD on 10/13/17. *Precautions: Colon Cancer 1992 Pain Assessment - Pain Description Pain Location: R shoulder and elbow, but only with raising arm while standing and sore first thing in the morning. - Treatment Modality: Ultrasound Parameters/Method Applied: continuous @ 1.5 w/cm2 x 10 mins to the R shoulder and R UT Patient Position: Sitting - Heat/Cryotherapy Treatment: Hot Pack (over the R UT/shoulder/elbow in sitting x 15 mins) Interventions - Exercise/Activities/Manual Therapy Exercises/Activities: Patient receives PROM to the R shoulder and elbow in supine. Patient demo full PROM L UE. Patient performs manual isometrics all directions x 5. 3# wand for bilateral shoulder flexion and chest presses x 8- 10. 2# dumbell for elbow sup/pron x 10. Re-educated patient about how to perform tband exercises and to avoid overly gripping the band so that he is working the scapula instead of forearm. Total minutes of Exercise: 22 Manual Therapy: NA - Charges Timed Code Treatment Minutes: 32 Total Treatment Time: 52 Procedures billed for this date of service:: hp, u/s, ex Assessment: Patient had denied pain to the R side of his neck, shoulder and elbow until he began HEP last week. When asking him to demo what he is doing to clarify accurate exercise, he overly casing soaker and nearly strains to pull the R arm backwards (for scap retraction) causing tremor to the area. More so seeing in the R shoulder than the L, but also present during R PROM in supine, guarding throughout. He demo 5/5 MMT today, full ROM actively with 3# wand for shoulder flexion. Patient Education: Education of diagnosis, Body/Joint mechanics, Home Exercise Program, Education of Plan of Care Patient demonstrates compliance with HEP?: Yes Short Term Goals Goal #1: Patient independent and compliant with HEP. Goal to be met by: 10/09/17 Progress towards Goal:: Progressing Goal #2: Right UE pain decreased to 3/10. Goal to be met by: 10/09/17 Progress towards Goal:: Progressing Goal #3: Right UE symptom frequency decreased to occasional. Goal to be met by: 10/09/17 Progress towards Goal:: No Change Collar Cutter Goals Goal #1: Pt knows HEP and to cont. ex's to maintain functional level at D/C. Goal to be met by: 11/04/17 Progress towards goal: Progressing Goal #2: Score on Neck Disabilty index improved 19% or less impairment. Goal to be met by: 11/04/17 Goal #3: Pt to report no right UE pain at rest or with activity. Goal to be met by: 11/04/17 Goal #4: Pt to demonstrate good postural awareness. Goal to be met by: 11/04/17 Plan PLAN OF CARE EXPIRES ON:: 11/04/17 ORDER # VISITS AND/OR THROUGH DATE: 11/04/17 PLAN: Patient continue x 1 more session. Return to MD 10/13/17. Patient to continue with HEP.
--- NOTE | 2017-10-10 09:51 | RS.OPPTDN ---
Subjective Date of Note: 10/10/17 Visit #: 7 Date of Evaluation: 09/25/17 Payer Source: MEDICARE Treatment Diagnosis: Cervical radiculopathy, right UE pain Current Subjective/complaints:: Patient says he has been working with [employer] a lot at home and feels his arm is much better. He moves his arm in all directions to show me. 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 2# dumbell for elbow flex/ext, sup/pron, wrist flex/ext, x 10. 1# for shoulder flexion, abd x 10. Red tband bilateral shoulder ER, Scap retraction with green tband x 10. Preschool Education Director tested, patient completed reassessment. 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 He has met his goal per UE Functional Index to only 12% impairment. He presents with full Active shoulder motion and demo improved strength with tbands. He demo mild tremor to the R UE during intentional motions, however, this is less so than in the first few treatments. Patient Education: Education of diagnosis, Home Exercise Program, Education of Plan of Care Patient demonstrates compliance with HEP?: Yes Short Term Goals Goal #1: Patient independent and compliant with HEP. Goal to be met by: 10/09/17 Progress towards Goal:: Met Goal #2: Right UE pain decreased to 3/10. Goal to be met by: 10/09/17 Progress towards Goal:: Met Goal #3: Right UE symptom frequency decreased to occasional. Goal to be met by: 10/09/17 Progress towards Goal:: Met Custodial Goals Goal #1: Pt knows HEP and to cont. ex's to maintain functional level at D/C. Goal to be met by: 11/04/17 Progress towards goal: Met Goal #2: Score on Neck Disabilty index improved 19% or less impairment. Goal to be met by: 11/04/17 Progress towards goal: Met Comments: 12% Goal #3: Pt to report no right UE pain at rest or with activity. Goal to be met by: 11/04/17 Progress towards goal: Met Comments: Patient voices and documents no pain at present or with activity today Goal #4: Pt to demonstrate good postural awareness. Goal to be met by: 11/04/17 Progress towards goal: Progressing Plan PLAN OF CARE EXPIRES ON:: 11/04/17 ORDER # VISITS AND/OR THROUGH DATE: 11/04/17 PLAN: Discontinue treatment at this time and plan for D/c. Patient to return to MD 10/13/17.
--- NOTE | 2017-10-14 10:17 | RS.OPPTDC ---
Date of Discharge: 10/10/17 Date of Evaluation: 09/25/17 Number of Visits: 7 Treatment Diagnosis: Cervical radiculopathy, right UE pain Current Complaints/Gains: Patient states he can move his arm in any direction now without difficulty. Says he uses the therabands frequently and describes no longer having pain. Functional Outcome Measure UE Functional Index: 12 - G Codes & Severity Modifier G Codes & Modifier: Carry d/C CI. Carry goal CI Source of G Code score: UE functional scale Interventions - Exercise/Activities/Manual Therapy Exercises/Activities: NA Manual Therapy: NA - Objective Findings Observations,measurements,etc.: Patient demonstrates full AROM to the right shoulder. He has some tremor into the right UE with intentional motions. - Charges Timed Code Treatment Minutes: NA Total Treatment Time: NA Procedures billed for this date of service:: NA Assessment Assessment: Patient reports full resolution of right UE ROM and pain. Short Term Goals Goal #1: Patient independent and compliant with HEP. Goal to be met by: 10/09/17 Progress towards Goal:: Met Goal #2: Right UE pain decreased to 3/10. Goal to be met by: 10/09/17 Progress towards Goal:: Met Goal #3: Right UE symptom frequency decreased to occasional. Goal to be met by: 10/09/17 Progress towards Goal:: Met Shelter Goals Goal #1: Pt knows HEP and to cont. ex's to maintain functional level at D/C. Goal to be met by: 11/04/17 Progress towards goal: Met Goal #2: Score on Neck Disabilty index improved 19% or less impairment. Goal to be met by: 11/04/17 Progress towards goal: Met Goal #3: Pt to report no right UE pain at rest or with activity. Goal to be met by: 11/04/17 Progress towards goal: Met Goal #4: Pt to demonstrate good postural awareness. Goal to be met by: 11/04/17 Progress towards goal: Partially Met Plan Reason for Discharge:: No Further Skilled Therapy Indicated
== END 2017-10-17 23:59 ==
PROVIDERS: ATTEND Internal Medicine
DX: M43.02 Spondylolysis, cervical region (principal); M47.22 Other spondylosis with radiculopathy, cervical region; M79.601 Pain in right arm

== ENCOUNTER 2018-06-22 13:30 | Outpatient (RCR) ==
--- NOTE | 2018-06-23 08:34 | RS.OPPTEV2 ---
Date of Note: 06/22/18 Visit #: 1 Number of visits approved by Insurance: n/a Date of Evaluation: 06/22/18 Payer Source: MEDICARE Date of Onset/Injury/Change in Status: 06/08/18 Surgery Performed?: No Treatment Diagnosis: greater trochanteric bursitis of L hip History of Condition/Mechanism of Injury:: Pain began approx 2 weeks ago, no known injury. pt had episode of confusion followed by pain in L hip. Prior Level of Function.....Patient was independent with: ADL's, Self Care, Caregiving, Ambulation/Mobility, Community Integration/Access Functional Limitations: Standing, Bending, Squatting, Ambulation Current Subjective/complaints:: pt states he is feeling some better since MD gave him an injection in his hip. States MD sent him for 1x visit for HEP. Treatment Side (optional): Left *Precautions: Colon Cancer 1992 Medical History Medical History: Hypertension, Arthritis, Cancer Medical History Comments:: Colon CA 1992 Surgical History Comments:: Rotator cuff repair, B carpal tunnel surgery Smoking Status: Former smoker Hx Home Medications: zocor, aspirin, fenofibrate, memantine, lexapro, Patient's Goals: get HEP and decrease L hip pain Pain Assessment - Pain Description Pain Location: L hip (area of greater trochanter) Pain Description: Aching Current Pain Intensity: 3 Functional Outcome Measure LE Functional Scale: 60 - G Codes & Severity Modifier G Codes & Modifier: n/a Source of G Code score: n/a Observation - Observation Inspection: pt with increased tightness B hamstring L worse than R, pt also with IT band tightness on L Posture: Forward Head, Rounded Shoulders, Increased Thoracic Kyphosis, Decreased Lumbar Lordosis Handedness: Right Gait - Gait Pattern General Gait Pattern Observation: No Deviations/Normal Gait Comments: pt amb with no increased pain this date. General Range of Motion: BUE WFL's. BLE WFL's Muscle Strength: BUE 5/5. RLE 5/5,. LLE hip flex 4/5, knee flex/ext 4+/5, ankle Df/PF 5/5 Hip ROM: Bilaterally WFL's Hip Muscle Strength: Right WFL's - Left Hip ROM Left Hip ROM Limitations: Soft Tissue Tightness, Tightness on Left, Pain on Left - Left Hip Strength Left Hip Flexion: 4- Good- Left Hip Abduction: 4- Good- Left Hip Adduction: 4 Good - Special Test DENISE Test: Negative Left Sara Test: Positive Left Abhilash Test: Negative Left Palpation Palpation Findings: Tenderness Comments:: in area of L greater trochanter. Sensation - Sensation Right Upper Extremity: Intact/Normal Left Upper Extremity: Intact/Normal Right Lower Extremity: Intact/Normal Left Lower Extremity: Intact/Normal Balance - Sitting Balance Static Sitting Balance: Normal Dynamic Sitting Balance: Normal - Standing Balance Static Standing Balance: Normal Dynamic Standing Balance: Good Interventions - Exercise/Activities/Manual Therapy Exercises/Activities: pt performed hamstring stretch, IT band stretch, isometric hip add, resisted hip abd with red tband. Manual Therapy: NA HOME EXERCISE PROGRAM: pt given and instructed on HEP including hamstring stretch, sidelying IT band stretch, standing IT band stretch, isometric hip add , resisted hip abd with red tband, sidelying clam abd ex with red theraband. pt demonstrated and verbalized understanding. - Charges Timed Code Treatment Minutes: 46 Total Treatment Time: 50 Procedures billed for this date of service:: eval low ex EVALUATION COMPLEXITY LEVEL EVALUATION COMPLEXITY LEVEL: HISTORY: Low, EXAM OF BODY SYSTEMS: Low, CLINICAL PRESENTATION: Low, CLINICAL DECISION MAKING: Low Assessment Assessment: pt presents with greater trochanteric bursitis, pt with muscle tightness B hamstring L worse than R, IT band tightness on L, decreased strength. pt demonstrated understanding of HEP. Patient Education: Home Exercise Program, Education of Plan of Care Rehab Potential: Good Short Term Goals Goal #1: . Goal #2: . Goal #3: . Mobile Ui Designer Goals Goal #1: pt verbalized understanding of HEP Goal to be met by: 06/22/18 Progress towards goal: Met Goal #2: . Goal #3: . Goal #4: . Plan - Treatment to be Provided Procedures: Therapeutic Exercises, Patient Education Modalities: No Modalities - Treatment Plan Frequency: 1 time visit per MD order Duration: One time treatment Dates of Mcc Goals: 06/22/18 Expiration date of current Insurance Approval:: n/a - Treatment Code (1) Greater trochanteric bursitis of left hip Code(s): M70.62 - TROCHANTERIC BURSITIS, LEFT HIP (2) Left hip pain Code(s): M25.552 - PAIN IN LEFT HIP (3) Muscle tightness Code(s): M62.89 - OTHER SPECIFIED DISORDERS OF MUSCLE (4) Muscle weakness Code(s): M62.81 - MUSCLE WEAKNESS (GENERALIZED)
== END 2018-07-17 23:59 ==
PROVIDERS: ATTEND Orthopaedic Surgery
DX: M70.62 Trochanteric bursitis, left hip (principal)